=== PATIENT | male | born 1980 | race Caucasian/White ===

== ENCOUNTER 2018-11-24 23:23 | Emergency (ER) | payer OTHER ==
[2018-11-24 23:30] VITALS: BP 124/91
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
== END 2018-11-25 00:18 | disposition home or self-care (01) ==
LOC: ED 23:23
DX: S01.01XA Laceration without foreign body of scalp, initial encounter (principal); S05.12XA Contusion of eyeball and orbital tissues, left eye, initial encounter; S60.419A Abrasion of unspecified finger, initial encounter; Y04.8XXA Assault by other bodily force, initial encounter; Y92.038 Other place in apartment as the place of occurrence of the external cause; Z88.0 Allergy status to penicillin; F17.200 Nicotine dependence, unspecified, uncomplicated
CPT/HCPCS: 99282